=== PATIENT | female | born 1985 | race Two or more races ===

== ENCOUNTER 2019-10-25 10:14 | Emergency (ER) | payer SELFPAY ==
[~2019-10-25] VITALS: Ht 170.2 cm; Wt 79.4 kg
[2019-10-25 10:19] VITALS: BP 132/86
== END 2019-10-25 11:01 | disposition home or self-care (01) ==
LOC: ER 10:14
DX: S06.0X0A Concussion without loss of consciousness, initial encounter (principal); V49.40XA Driver injured in collision with unspecified motor vehicles in traffic accident, initial encounter; R03.0 Elevated blood-pressure reading, without diagnosis of hypertension; Y93.89 Activity, other specified; Y92.410 Unspecified street and highway as the place of occurrence of the external cause
CPT/HCPCS: 99282